=== PATIENT | male | born 1975 | race Caucasian/White ===

== ENCOUNTER → 2024-10-12 | Outpatient (CLI) | payer MEDICAID, SELFPAY ==
--- NOTE | 2024-10-12 08:24 | XR_ITS ---
Examination: Scoliosis survey 4, views. Technique: AP lateral thoracic AP lateral lumbar spine total 4 views standing Exam date and time: October 12, 2024 at 0844 hrs. Indications scoliosis history worsening back pain Findings: Severe osteopenia Thoracic dextroscoliosis 54 degrees Lumbar levoscoliosis 41 degrees Moderate bilateral hip osteoarthritis No acute vertebral body fracture Diffuse moderate thoracic lumbar disc narrowing Impression: Scoliosis as above
== END | disposition home or self-care (01) ==
LOC: CDIM 08:15
PROVIDERS: Referring Provider Student in an Organized Health Care Education/Training Program; Visit Provider Student in an Organized Health Care Education/Training Program
DX: M41.86 Other forms of scoliosis, lumbar region (principal); M41.84 Other forms of scoliosis, thoracic region
CPT/HCPCS: 72082

== ENCOUNTER 2025-08-16 15:53 | Emergency (ER) | payer MEDICAID, SELFPAY ==
[2025-08-16 15:55] VITALS: PULSE 120; O2SAT 97; BMI 25.0
[2025-08-16 15:56] VITALS: BP 128/84; PULSE 113; RESP 18; TEMP 37.2; O2SAT 99
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
[2025-08-16 16:30] LABS: Basophils # (Auto) 0.1 Thou/mm3 (0.0-0.2); Basophils % (Auto) 1 % (0-2.5); Eosinophils # (Auto) 0.2 Thou/mm3 (0.0-0.5); Eosinophils % (Auto) 2 % (0-10); Hematocrit 42.0 % (41.0-53.0); Hemoglobin 13.9 g/dL (13.5-16.0); Immature Granulocytes Auto 0.07 Thou/mm3 (0.00-0.00); Lymphocytes # (Auto) 2.9 Thou/mm3 (1.0-4.8); Lymphocytes % (Auto) 29 % (10-50); Mean Corpuscular HGB Conc 33.1 g/dl (31.0-37.0); Mean Corpuscular Hemoglobin 29.1 pg (25.0-35.0); Mean Corpuscular Volume 88 fL (80-100); Monocytes # (Auto) 1.0 Thou/mm3 (0.0-0.8); Monocytes % (Auto) 10 % (0-12); Neutrophils # (Auto) 5.7 Thou/mm3 (1.8-7.7); Neutrophils % (Auto) 57 % (37-80); Nucleated Red Blood Cell # 0.00 Thou/mm3 (0.00-0.00); Nucleated Red Blood Cell % 0 /100 WBC (0); Platelet Count 343 Thou/mm3 (140-440); RDW Standard Deviation 42.0 fL (35.1-43.9); Red Blood Count 4.77 Miln/mm3 (4.50-5.90); White Blood Count 9.9 Thou/mm3 (3.8-10.6)
[2025-08-16 16:47] LABS: Alanine Aminotransferase 13 U/L (10-49); Albumin, Serum 4.8 gm/dL (3.5-5.0); Albumin/Globulin Ratio 1.7 (1.2-2.2); Alkaline Phosphatase 83 U/L (46-116); Anion Gap 10 (7-16); Aspartate Amino Transferase 23 U/L (0-34); BUN/Creatinine Ratio 9 Ratio (12-20); Bilirubin,Total 0.4 mg/dL (0.3-1.2); Blood Urea Nitrogen 9 mg/dL (9-23); Calcium 9.6 mg/dL (8.3-10.6); Calcium (Corrected) 9.6 mg/dL (8.5-10.1); Carbon Dioxide 25.7 mMol/L (20.0-31.0); Chloride 107 mMol/L (98-107); Creatinine (Component) 1.0 mg/dL (0.6-1.3); Estimated Creatinine Clearance 76.9 mL/min (>60); Globulin 2.8 gm/dL (2.3-3.5); Glucose 101 mg/dL (74-106); INR 0.9 (0.9-1.3); Osmolality,Calculated 283 (275-295); Partial Thromboplastin Time 24.0 Seconds (22.0-36.0); Potassium 3.4 mMol/L (3.4-5.1); Prothrombin Time 9.7 Seconds (9.0-12.2); Sodium 143 mMol/L (136-145); Total Protein 7.6 gm/dL (5.7-8.2); eGFR > 60 See Note
[2025-08-16 16:55] VITALS: BP 115/86; PULSE 97; RESP 17; TEMP 37.1; O2SAT 98
[2025-08-16 17:51] VITALS: BP 120/86; PULSE 98; RESP 19; TEMP 37.1; O2SAT 99
== END 2025-08-16 17:58 | disposition home or self-care (01) ==
PROVIDERS: Registered Nurse General Practice; Emergency Provider Emergency Medicine
DX: S20.219A Contusion of unspecified front wall of thorax, initial encounter (principal); S09.90XA Unspecified injury of head, initial encounter; S39.91XA Unspecified injury of abdomen, initial encounter; M54.2 Cervicalgia; V89.2XXA Person injured in unspecified motor-vehicle accident, traffic, initial encounter
CPT/HCPCS: 36415; 70450; 71045; 71260; 72125; 74177; 80053; 85025; 85610; 85730; 99283; A4649; Q9967